=== PATIENT | female | born 1995 | race African-American/Black ===

== ENCOUNTER 2020-01-27 12:55 | Emergency (ER) | payer OTHER ==
[~2020-01-27] VITALS: Ht 162.6 cm; Wt 93.9 kg
--- NOTE | 2020-01-27 13:07 | NUR ---
PT PRESENTED TO THE ER FOR MEDICAL CLEARANCE. PT IS VOLUNTARILY GOING TO [facility]. PT WAS TOLD TO GO TO THE ER FOR MEDICAL CLEARANCE BEFORE SHE CAN BE ADMITTED. PT AMBULATED TO ER 12. URINE SAMPLE OBTAINED.
[2020-01-27 13:45] LABS: BASOPHILS # (AUTO) 0.1 /CMM (0.0-0.2); BASOPHILS % (AUTO) 0.8 % (0.0-2.0); EOSINOPHILS % (AUTO) 0.6 % (0.0-6.0); HEMATOCRIT 38 % (33-45); HEMOGLOBIN 12.5 g/dL (11.5-14.8); LYMPHOCYTES # (AUTO) 2.5 /CMM (0.8-4.8); LYMPHOCYTES % (AUTO) 24.7 % (20.0-44.0); MEAN CORPUSCULAR HGB CONC 33 g/dl (31.0-36.0); MEAN CORPUSCULAR VOLUME 88 fL (82-100); MONOCYTES # (AUTO) 0.6 /CMM (0.1-1.30); MONOCYTES % (AUTO) 6.1 % (2.0-12.0); NEUTROPHILS # (AUTO) 6.9 /CMM (1.8-8.9); NEUTROPHILS % (AUTO) 67.8 % (43.0-81.0); PLATELET COUNT (AUTO) 226 /CMM (150-450); RED BLOOD CELL COUNT(AUTO) 4.33 MIL/uL (4.0-5.2); WHITE BLOOD COUNT (AUTO) 10.1 K/uL (4.3-11.0)
[2020-01-27 13:48] LABS: CALCIUM, SERUM 8.5 mg/dL (8.5-10.1); CARBON DIOXIDE 27 mmol/L (21-32); CHLORIDE 102 mmol/L (98-107); CREATININE 0.9 mg/dL (0.6-1.3); GLUCOSE 111 mg/dL (74-106); POTASSIUM 3.8 mmol/L (3.5-5.1); SODIUM SERUM 138 mmol/L (136-145); UREA NITROGEN, BLOOD 9 mg/dL (7-18)
[2020-01-27 13:54] LABS: ACETAMINOPHEN < 2 ug/ml (10-30); ALANINE AMINOTRANSFERASE 19 U/L (12-78); ALBUMIN 3.7 g/dL (3.4-5.0); ALCOHOL, BLOOD < 3 mg/dL (0-0); ALKALINE PHOSPHATASE 53 U/L (46-116); ASPARTATE AMINOTRANSFERASE 17 U/L (15-37); BILIRUBIN,DIRECT 0.1 mg/dL (0.0-0.2); BILIRUBIN,TOTAL 0.3 mg/dL (0.2-1.0); TOTAL PROTEIN, SERUM 7.5 g/dL (6.4-8.2)
--- NOTE | 2020-01-27 14:39 | NUR ---
URINE SAMPLE OBTAINED AND SENT TO LAB.
[2020-01-27 14:56] LABS: APPEARANCE,URINE Cloudy (CLEAR); BILIRUBIN,URINE Negative (NEGATIVE); BLOOD, URINE Trace-lysed Ery/uL (NEGATIVE); COLOR,URINE Yellow (YELLOW); KETONES,URINE Negative (NEGATIVE); LEUKOCYTE ESTERASE ,URINE Small (NEGATIVE); NITRITE, URINE Negative (NEGATIVE); PROTEIN,URINE Negative (NEGATIVE); UGLUCOSE Negative (NEGATIVE)
[2020-01-27 15:02] LABS: BACTERIA,URINE Few /HPF (None Seen); RBC,URINE 0-2 /HPF (0-2)
[2020-01-27 15:03] LABS: SQUAMOUS EPITHELIAL CELL,UR Many /HPF (None Seen)
--- NOTE | 2020-01-27 15:31 | NUR ---
FAXED CLINICALS TO [facility] AT [facility]. CONFIRMATION OF 13 PAGE FAX IS IN THE CHART.
[2020-01-27] MEDS ORDERED: NITROFURANTOIN/NITROFURAN MAC 100 MG CAPSULE ONE (15:49)
[2020-01-27] MEDS ORDERED: TDAP [DIPH/PERTUSSIS/TET] 0.5 ML VIAL IM ONE ×2 (15:50→16:00)
--- NOTE | 2020-01-27 15:59 | NUR ---
WOUND CARE IS IN PROGRESS.
[2020-01-27] MEDS ORDERED: NITROFURANTOIN/NITROFURAN MAC 100 MG CAPSULE PO ONE (16:00)
--- NOTE | 2020-01-27 18:12 | NUR ---
CALLING [facility] INTAKE RE: PT ADMISSION. SPEAKING TO LETHA RE: PT BEING TRANSFERED TO [facility]. REFAXING CLINICALS TO [facility].
--- NOTE | 2020-01-27 18:56 | NUR ---
CALLING LETHA AT [facility] INTAKE. PAPERS WERE REC'D AND SHE WILL CALL BACK WITH INFORMATION SOON SHE HAS INFORMATION.
--- NOTE | 2020-01-27 19:36 | NUR ---
PT APPEARS TO BE RESTING COMFORTABLY WITH NO S/S OF PAIN OR DISTRESS.
--- NOTE | 2020-01-27 21:13 | NUR ---
PT IS C/O A TOOTHACHE. PT IS ASKING FOR AN IBUPROFEN.
--- NOTE | 2020-01-27 21:17 | NUR ---
PT AMBULATED TO THE NURSE'S STATION ASKING FOR IBUPROFEN.
--- NOTE | 2020-01-27 22:45 | NUR ---
PT AMBULATED TO THE BATHROOM WITH A STEADY GAIT.
[2020-01-27 23:03] VITALS: BP 148/64
--- NOTE | 2020-01-27 23:03 | NUR ---
PT IS EATING A SANDWICH AND TOLERATING PO WELL.
--- NOTE | 2020-01-27 23:14 | NUR ---
FAXED RESULT TO INTAKE
--- NOTE | 2020-01-27 23:31 | NUR ---
PT ACCEPTED AT [facility] ACCEPTING MD MONGE PT WILL GO TO UNIT 1 PHONE # FOR REPORT
--- NOTE | 2020-01-27 23:43 | NUR ---
CALLED CALL THE CAR FOR TRANSPORT RESERVATION #[phone]. WILL CALL BACK FOR ETA.
--- NOTE | 2020-01-27 23:45 | NUR ---
[facility] ETA 45-1 HOUR
--- NOTE | 2020-01-28 00:22 | NUR ---
CALLING REPORT TO [facility].
--- NOTE | 2020-01-28 00:28 | NUR ---
REPORT GIVEN TO ILA, RN
== END 2020-01-28 00:31 ==
LOC: ER 12:58
DX: S51.812A Laceration without foreign body of left forearm, initial encounter (principal); R45.851 Suicidal ideations; N30.00 Acute cystitis without hematuria; F19.10 Other psychoactive substance abuse, uncomplicated; F60.9 Personality disorder, unspecified; F32.9 Major depressive disorder, single episode, unspecified; X58.XXXA Exposure to other specified factors, initial encounter; Y93.89 Activity, other specified; Y92.89 Other specified places as the place of occurrence of the external cause; Y99.8 Other external cause status
CPT/HCPCS: 36415; 80048; 80076; 80305; 80307; 80329; 81001; 84703; 85025; 90471; 90715; 99285; A6403; G0480; 81000-TC

== ENCOUNTER 2020-01-31 12:54 | Emergency (ER) | payer OTHER ==
[~2020-01-31] VITALS: Ht 162.6 cm; Wt 90.7 kg
[2020-01-31] MEDS ORDERED: LIDOCAINE VISCOUS 2% UD 15 ML UDC ONE (13:37)
[2020-01-31] MEDS ORDERED: MAG HYDROX/AL HYDROX/SIMETH 30 ML UDC ONE (13:37)
[2020-01-31] MEDS: MAG HYDROX/AL HYDROX/SIMETH 30 ML UDC PO ONE (13:39)
[2020-01-31] MEDS: LIDOCAINE VISCOUS 2% UD 15 ML UDC MM ONE (13:39)
[2020-01-31 13:44] LABS: BASOPHILS # (AUTO) 0.1 /CMM (0.0-0.2); BASOPHILS % (AUTO) 0.5 % (0.0-2.0); EOSINOPHILS % (AUTO) 0.1 % (0.0-6.0); HEMATOCRIT 41 % (33-45); HEMOGLOBIN 13.3 g/dL (11.5-14.8); LYMPHOCYTES % (AUTO) 15.2 % (20.0-44.0); MEAN CORPUSCULAR HGB CONC 33 g/dl (31.0-36.0); MEAN CORPUSCULAR VOLUME 89 fL (82-100); MONOCYTES # (AUTO) 0.6 /CMM (0.1-1.30); MONOCYTES % (AUTO) 4.6 % (2.0-12.0); NEUTROPHILS # (AUTO) 10.6 /CMM (1.8-8.9); NEUTROPHILS % (AUTO) 79.6 % (43.0-81.0); PLATELET COUNT (AUTO) 246 /CMM (150-450); RED BLOOD CELL COUNT(AUTO) 4.62 MIL/uL (4.0-5.2); WHITE BLOOD COUNT (AUTO) 13.3 K/uL (4.3-11.0)
[2020-01-31 14:00] LABS: ALBUMIN 4.3 g/dL (3.4-5.0); BILIRUBIN,DIRECT 0.1 mg/dL (0.0-0.2); BILIRUBIN,TOTAL 0.3 mg/dL (0.2-1.0); CALCIUM, SERUM 9.3 mg/dL (8.5-10.1); POTASSIUM 3.3 mmol/L (3.5-5.1); TOTAL PROTEIN, SERUM 8.5 g/dL (6.4-8.2)
[2020-01-31] MEDS ORDERED: ONDANSETRON HCL/PF 4 MG/2 ML VIAL ONE (14:29)
[2020-01-31] MEDS: ONDANSETRON HCL/PF 4 MG/2 ML VIAL IVP ONE (14:33)
--- NOTE | 2020-01-31 14:34 | NUR ---
Pt savita Hines made aware medicated as ordered
--- NOTE | 2020-01-31 15:12 | NUR ---
Patient discharged to home in stable condition. Written and verbal after care instructions given. Patient verbalizes understanding of instruction.
[2020-01-31 15:13] VITALS: BP 126/79
== END 2020-01-31 15:14 | disposition home or self-care (01) ==
LOC: ER 12:56
DX: K29.70 Gastritis, unspecified, without bleeding (principal); R11.2 Nausea with vomiting, unspecified
CPT/HCPCS: 80048; 80076; 83690; 85025; 96374; 99283; J2405